=== PATIENT | female | born 1980 | race Hispanic/Latino ===

== ENCOUNTER 2018-02-28 11:57 | Emergency (ER) | payer MEDICAID, OTHER ==
[2018-02-28 12:02] VITALS: BMI 24.3
[2018-02-28 12:04] VITALS: BP 103/70; PULSE 92; RESP 16; TEMP 97.7; O2SAT 99
--- NOTE | 2018-02-28 13:03 | ED PDOC ---
HPI: Back Time Seen by Provider: 02/28/18 12:16 Chief Complaint (Nursing): Back Pain Chief Complaint (Provider): Back Pain History Per: Patient History/Exam Limitations: no limitations Current Symptoms Are (Timing): Intermittent Episodes Additional Complaint(s): 38 y/o female with a pmhx of asthma presents for evaluation of lower back pain x5 days. Patient states she has a history of chronic back pain, but her usual pain intensified last night. She reports nausea this morning that has since resolved and states her current symptoms are similar in presentation to when she had a kidney infection with the exception of no current fever or urinary symptoms. Patient is requesting that her urine be checked for infection at this time. She states the pain is currently a 7, but was a 10 yesterday. She describes it as sharp and intermittent. Patient took no medication prior to arrival. She denies fever, chills, vomiting, saddle anesthesia, abdominal pain, numbness, weakness, vaginal bleeding, cough, shortness of breath, or chest pain. Of note: Patient reports having a compressed nerve in her back x10 months since she had a prolonged labor. Patient states she was supposed to go to physical therapy for this issue, but could not find the time to go as a new mother. PMD: Out of state- in [place] Past Medical History Reviewed: Historical Data, Nursing Documentation, Vital Signs Vital Signs: Last Vital Signs Temp 97.7 F 02/28/18 12:03 Pulse 92 H 02/28/18 12:03 Resp 16 02/28/18 12:03 BP 103/70 02/28/18 12:03 Pulse Ox 99 02/28/18 12:03 - Medical History PMH: Asthma, Back Problems (compressed nerve) - Surgical History Surgical History: Tonsillectomy - Family History Family History: States: Unknown Family Hx - Social History Current smoker - smoking cessation education provided: No Alcohol: None Drugs: Denies - Home Medications Home Medications: Ambulatory Orders Medication Instructions Recorded Acetaminophen [Acetaminophen 8 650 mg PO Q8 PRN #24 tablet.er 02/28/18 Hour] Cyclobenzaprine [Cyclobenzaprine 10 mg PO Q8 PRN #12 tab 02/28/18 HCl] - Allergies Allergies/Adverse Reactions: Allergies Allergy/AdvReac Type Severity Reaction Status Date / Time Sulfa (Sulfonamide Allergy Unknown RASH Verified 02/28/18 12:25 Antibiotics) sulfamethoxazole Allergy Unknown RASH Verified 02/28/18 12:25 [From Bactrim] trimethoprim [From Bactrim] Allergy Unknown RASH Verified 02/28/18 12:25 Review of Systems ROS Statement: Except As Marked, All Systems Reviewed And Found Negative Constitutional: Negative for: Fever Respiratory: Negative for: Cough, Shortness of Breath Gastrointestinal: Positive for: Nausea (now resolved). Negative for: Vomiting, Abdominal Pain Genitourinary Female: Negative for: Dysuria, Frequency, Incontinence, Vaginal Bleeding Skin: Negative for: Rash Neurological: Negative for: Weakness, Numbness Physical Exam - Reviewed Nursing Documentation Reviewed: Yes Vital Signs Reviewed: Yes - Physical Exam Comments: GENERAL APPEARANCE: Patient is awake, alert, oriented x 3, in no acute distress , ambulatory with steady gait in ER. SKIN: Warm, dry; (-) cyanosis. EYES: (-) conjunctival pallor. ENMT: Mucous membranes moist. Airway patent, (-) stridor. NECK: Supple, FROM (-) tenderness, (-) stiffness, (-) lymphadenopathy. CHEST AND RESPIRATORY: (-) rales, (-) rhonchi, (-) wheezes; breath sounds equal bilaterally. Respirations even and nonlabored, speaking in full sentences. HEART AND CARDIOVASCULAR: (-) irregularity; (-) murmur, (-) gallop. ABDOMEN AND GI: Soft; (-) tenderness; (-) guarding (-) distention (-) CVA tenderness BACK: (+) bilateral paralumbar tenderness, (-) spasm, (-) direct bony tenderness, (-) deformity. Straight leg raise (-) bilaterally. EXTREMITIES: (-) deformity. Distal pulses good bilaterally. NEURO AND PSYCH: Mental status as above. Intact sensation bilaterally; normal strength in extension of the knees, plantar and dorsiflexion of the toes. Gait steady, speech clear. Sensation intact throughout. (-) facial asymmetry (-) slurred speech (-) aphasia - Laboratory Results Urine POC: Negative Urine dip results: Negative for: Leukocyte Esterase, Blood, Nitrate, Ketones, Glucose, Protein - ECG O2 Sat by Pulse Oximetry: 99 (RA) Pulse Ox Interpretation: Normal Medical Decision Making Medical Decision Making: Impression: Acute on chronic back pain, concern for UTI/pyelonephritis Plan: --Urine --Urine dipstick --Tylenol 650mg PO (Patient refused muscle relaxer and NSAID in ED) --Reevaluation 1300 Urine negative. Udip reviewed and unremarkable. On re-evaluation, patient reports improvement of symptoms. Patient remains AAOx3 , in no acute distress. On exam, neck is supple, lungs CTA, cardiac RRR, abdomen is soft and non-tender, neuro exam shows no focal findings. Ambulatory in ED without difficulty. VSS, stable for discharge. Diagnostic results d/w the patient in great detail. Dx of acute on chronic back pain d/w the patient. Based on history, exam and diagnostic results plan will be for discharge and outpatient follow up. Advised to follow up with primary care physician/ortho in 1-2 days without fail. Advised to take medication as prescribed. Return to the emergency room at any time for any new or worsening symptoms. Patient states she fully agrees with and understands discharge instructions. States that she agrees with the plan and disposition. Verbalized and repeated discharge instructions and plan. I have given the patient opportunity to ask any additional questions. Scribe Attestation: Documented by Wade Pryor, acting as a scribe for Imelda Khan PA-C. Provider Scribe Attestation: All medical record entries made by the scribe were at my direction and personally dictated by me. I have reviewed the chart and agree that the record accurately reflects my personal performance of the history, physical exam, medical decision making, and the department course for this patient. I have also personally directed, reviewed, and agree with the discharge instructions and disposition. Disposition - Clinical Impression Clinical Impression: Chronic back pain greater than 3 months duration, Nerve compression, Low back pain - Patient ED Disposition Is Patient to be Admitted: No Counseled Patient/Family Regarding: Diagnosis, Need For Followup, Rx Given - Disposition Referrals: Minda Edmond MD [Staff Provider] - Disposition: Routine/Home Disposition Time: 13:06 Condition: STABLE Additional Instructions: FOLLOW UP WITH PMD IN 1-2 DAYS WITHOUT FAIL. ORTHO REFERRAL ALSO PROVIDED IF NEEDED. RETURN TO ED WITH ANY NEW OR WORSENING SYMPTOMS. Prescriptions: Acetaminophen [Acetaminophen 8 Hour] 650 mg PO Q8 PRN #24 tablet.er PRN Reason: Pain, Moderate (4-7) Cyclobenzaprine [Cyclobenzaprine HCl] 10 mg PO Q8 PRN #12 tab PRN Reason: Muscle Spasm Instructions: Low Back Pain in Adults, Neuropathic Pain, Back Exercises, Back Precautions Forms: [facility] (Bur[place]ian) Print Language: TAJIK - POA Present On Arrival: None
== END 2018-02-28 13:13 | disposition home or self-care (01) ==
LOC: H.ER 11:57
DX: M54.9 Dorsalgia, unspecified (principal); G54.9 Nerve root and plexus disorder, unspecified; G89.29 Other chronic pain